=== PATIENT | male | born 1990 | race Two or more races ===

== ENCOUNTER 2019-09-03 18:44 | Emergency (ER) | payer OTHER ==
[~2019-09-03] VITALS: Ht 182.9 cm; Wt 72.6 kg
[2019-09-03 19:20] VITALS: BP 125/75
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
--- NOTE | 2019-09-03 19:30 | NUR ---
ED Nurse Note: ERMD at bedside
--- NOTE | 2019-09-03 20:00 | NUR ---
ED Nurse Note: xray at bedside
--- NOTE | 2019-09-03 20:10 | NUR ---
ED Nurse Note: ERmD at bedside reviewing results of xray. polygraph technician at bedside applying splints. no s/s of distress noted.
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
[2019-09-03] MEDS ORDERED: MUPIROCIN15 GM TOPIC (20:35)
[2019-09-03] MEDS ORDERED: ACETAMINOPHEN-1 EAC1 ORAL (20:35)
[2019-09-03] MEDS ORDERED: IBU800 MG PO (20:35)
[2019-09-03 20:45] VITALS: BP 121/78
--- NOTE | 2019-09-03 21:00 | NUR ---
ER DISCHARGE NOTE: Patient is cleared to be discharged home with crutches per ERMD, pt is aox4, on room air, with stable vital signs. pt was given dc and prescription instructions, pt was able to verbalize understanding, pt id band removed. pt is able to ambulate with steadily with crutches. pt took all belongings.
== END 2019-09-03 21:00 | disposition home or self-care (01) ==
LOC: EMR 19:15
DX: S62.92XA Unspecified fracture of left hand, initial encounter for closed fracture (principal); S83.92XA Sprain of unspecified site of left knee, initial encounter; V23.4XXA Motorcycle driver injured in collision with car, pick-up truck or van in traffic accident, initial encounter; Y92.9 Unspecified place or not applicable; S40.812A Abrasion of left upper arm, initial encounter
CPT/HCPCS: 29125; 29505; 99283